=== PATIENT | female | born 1955 | race Caucasian/White ===

== ENCOUNTER 2023-11-15 06:01 | Day surgery (SDC) | payer MEDICARE, OTHER, SELFPAY ==
[2023-11-09 12:52] VITALS: BMI 29.4
[2023-11-15] VITALS (9 sets, daily range): BP systolic 133–159; BP diastolic 64–79; PULSE 75–105; RESP 12–17; TEMP 36.3–36.6; O2SAT 93–100; BMI 28.7
[2023-11-15] MEDS: LACTATED RINGERS 1,000 ML 42 ML IV (07:00)
--- NOTE | 2023-11-15 07:21 | SUR.OPER ---
Prone on spine table, head in foam head support, padded chest and pelvic supports, gel pad at knees, lower legs supported by pillows; nipples, genitalia and toes free of pressure, arms secured on foam padded arm boards at <90 degrees abduction. Tape over blanket at thigh secured to table.
--- NOTE | 2023-11-15 07:46 | PM.PREOP ---
Pre-operative Note Interval Note History & Physical reviewed/Exam performed by Physician: Yes Changes to H&P: No
--- NOTE | 2023-11-15 07:48 | PM.OP.1 ---
Operative Date/Time/Diagnoses Date of procedure: 11/15/23 Time of procedure: 07:40 Pre-op diagnosis: 1. L4-5, L5-S1 disc herniation 2. Lumbar radiculopathy Post-op diagnosis: same Procedure & Clinicians Procedure: 1. L4-5, L5-S1 left microdiscectomy 2. Utilization of microsurgical technique and operating microscope Same procedure as scheduled: Yes Indications: Patient has been having chronic back pain and worsening lumbar radiculopathy. Patient has left-sided L4-5 L5-S1 disc herniation on her lumbar spine MRI correlating with her radiculopathy. Patient failed multiple conservative management with worsening pain weakness and numbness in her lower extremity. Patient has been having difficulty performing activity of daily living. After discussing risks benefits of treatment options, patient elected proceed with surgery. Surgeon: Tricia Yousif [employer] Specialist: Prerna Walter Click Yes if Unassisted: No Anesthesia Type: General Operative Notes Closure Type: primary Specimen(s): none sent Estimated Blood Loss (mL): 3 Blood products transfused: none Procedure in detail: Patient was seen in the preoperative area. Risks and benefits of the surgery was discussed with the patient. Informed consent was obtained from the patient and placed in the chart. Surgical site was marked. Patient was taken to the operative room. General anesthesia was administered. Prophylactic antibiotic was given to the patient less than 30 min before the incision was made. Patient was placed into a prone position on the Lex table. Patient's back was then prepped and draped in the sterile fashion. Time-out was performed at this time. Using AP and lateral C-arm imaging the interval between L4-5 L5-S1 was identified and marked on patient's back. A 1 inch incision 1 in from midline was made on the left side. The fascia was incised in line with skin incision. Globus MARS retractors was placed inside the incision and docked onto the L5 lamina. Using microsurgical technique and operating microscope, a L5-S1 laminotomy was performed using a Kerrison rongeur. Liagamentum flavum was resected at the site of the laminotomy. The disc space at L5-S1 was identified. Microdiscectomy was performed by incising the annulus with #11 blade. Microcurettes and pituitary was used to removed herniated disc fragments of disc from the epidural space. After the microdiskectomy at L5-S1 was completed, the area medial lateral superior and inferior to the area of the microdiskectomy was inspected and explored using a micro curette. No other impinging structure was identified. A separate incision was made over the L4 level. The MARs retractor was then redirected over the L4-5 level under x-ray guidance and docked on the L4 lamina. Using microsurgical technique and operating microscope, a L4 laminotomy was performed using a Kerrison rongeur. Liagamentum flavum was resected at the site of the laminotomy. The disc space at L4-5 was identified. Microdiscectomy was performed by incising the annulus with #11 blade. Microcurettes and pituitary was used to removed herniated disc fragments of disc from the epidural space. After the microdiskectomy at L4-5 was completed, the area medial lateral superior and inferior to the area of the microdiskectomy was inspected and explored using a micro curette. No other impinging structure was identified. The wound was then irrigated with sterile normal saline. 40 mg Depo-Medrol was placed into the epidural space. The deep fascia was closed with 1-0 Vicryl. The subcutaneous tissue was closed with 2-0 Vicryl. The skin was closed with 4-0 Monocryl and Dermabond. Patient tolerated the procedure well. There were no complications. Patient was transferred recovery room in stable condition. Complications: none Post-operative Condition: stable Disposition: PACU Plan for aftercare: Discharge to home
[2023-11-15] MEDS: CEFAZOLIN 2 GM/100 ML PREMIX 100 ML IV (08:00)
[2023-11-15] MEDS: BUPIVACAINE 0.25% (PF) 30 ML, EPINEPHrine 0.15 MG INJ (08:12)
--- NOTE | 2023-11-15 08:52 | DI.RAD.S_ITS ---
PROCEDURE: XR LUMBAR SPINE 2-3V INDICATIONS: L4-5, L5-S1 MICRODISCECTOMY TECHNIQUE: 3 views of the lumbar spine were acquired. COMPARISON: None. FINDINGS: Bones: Limited fluoroscopic images of the lumbar spine demonstrate surgical instrumentation of the lower lumbar spine at the level of L4-5 and L5-S1. IMPRESSION: Intraoperative fluoroscopic support for lumbar surgery involving the lower lumbar spine. Please see separate operative note for further details. Dictated by: Damian Davies M.D. on 11/15/2023 at 10:05 Approved by: Damian Davies M.D. on 11/15/2023 at 10:06
[2023-11-15] MEDS: fentaNYL 100 MCG/2 ML INJ IV ×2 (09:24→09:29)
[2023-11-15] MEDS: LORazepam 2 MG/ML INJ 0.25 MG IV (09:31)
[2023-11-15] MEDS: OXYCODONE IR 5 MG TABLET PO ×2 (09:34→10:17)
== END 2023-11-15 10:34 | disposition home or self-care (01) ==
PROVIDERS: Referring Provider Orthopaedic Surgery Orthopaedic Surgery of the Spine; Visit Provider Orthopaedic Surgery Orthopaedic Surgery of the Spine
PROC: (CPT 63030; principal; 2023-11-15 07:45)
DX: M51.26 Other intervertebral disc displacement, lumbar region (principal); M54.16 Radiculopathy, lumbar region
CPT/HCPCS: 63030; 63035; 72100; 76000; J0171; J0690; J1100; J1170; J2060; J2250; J2405; J2704; J2919; J3010; J3490